=== PATIENT | female | born 1970 | race Caucasian/White ===

== ENCOUNTER → 2017-11-26 07:54 | Outpatient (CLI) | payer BC, SELFPAY | PROVIDERS: Family Provider Family Medicine; PCP Family Medicine; Visit Provider Obstetrics & Gynecology | DX: N93.9 Abnormal uterine and vaginal bleeding, unspecified (principal) | CPT/HCPCS: 76830; 76856; 93976 ==

== ENCOUNTER → 2018-03-09 13:51 | Outpatient (CLI) | payer BC, SELFPAY ==
[2018-03-09 11:11] VITALS: BMI 40.4
== END ==
PROVIDERS: Family Provider Family Medicine; PCP Family Medicine; Referring Provider Physician Assistant; Visit Provider Physician Assistant
DX: J02.9 Acute pharyngitis, unspecified (principal)
CPT/HCPCS: 87081

== ENCOUNTER 2018-03-12 08:02 | Day surgery (SDC) | payer BC, SELFPAY ==
[2018-03-09 11:11] VITALS: BMI 40.4
[2018-03-12] VITALS (13 sets, daily range): BP systolic 130–157; BP diastolic 78–95; PULSE 65–97; RESP 15–18; TEMP 36.6–37.3; O2SAT 90–100; BMI 39.4
--- NOTE | 2018-03-12 | HYST_PTH ---
PATIENT: SHANKAR GREGG [place] [facility] [place][id number] AGE/SX: 47/F ROOM: RE03/12/[address]: Dr. Kinsey Ramires MD : 1970 BED: DIS: 03/12/2018 SPEC #: [id number] RECD: 03/12/18 14:28 STATUS: FILIBERTO RANJITH #: [id number] BISI: 03/12/18 00:[address]: Kinsey Ramires DEPT: SURGICAL PATHOLOGY RECD BY: Sukumar Leger ENTERED: 03/12/18 14:28 SP TYPE: HYSTERECT OTHR DR: Dr. Alisson Ellison MD Tissues: Uterus, NOS Procedures: Surgery Specimen Level V HEADER OPERATION: Vaginal hysterectomy PRE-OP DIAGNOSIS: Abnormal uterine bleeding, history uterine ablation TISSUE SUBMITTED: Uterus MICROSCOPIC DIAGNOSIS Uterus, vaginal hysterectomy: Cervix - chronic inflammation. Endometrium - extensive fibrosis, consistent with history of endometrial ablation. - Focal area with proliferative endometrium. Myometrium - intramural leiomyoma (1 cm in greatest dimension). KINDRA:vladimir 03/13/18 MICROSCOPIC DESCRIPTION Slides are reviewed. GROSS DESCRIPTION Received in fixative is one container labeled with the patient's name and designated uterus. The specimen consists of a hysterectomy specimen consisting of uterus with cervix weighing 80 gm and measuring 9 x 5 x 4 cm. The specimen is previously, partially opened. The serosal surface is merchant, glistening. The ectocervical mucosa is unremarkable. The endocervical canal measures 2.5 cm in length and the endocervical mucosa is merchant, glistening and unremarkable. The endometrial cavity is almost completely obliterated and measures up to 4.5 cm in length. The endometrium appears to be completely fibrotic. The uterine wall reveals one merchant nodular mass measuring 1 cm in greatest dimension. Sections of this mass reveals merchant whorled cut surfaces without areas of hemorrhage, necrosis or cystic degeneration. The uninvolved uterine wall measures up to 2 cm in thickness. [employer] sections are submitted in seven cassettes as follows: 1 - anterior cervix, 2 - posterior cervix, 3 & 4 - anterior uterine wall, 5 & 6 - posterior uterine wall, 7 - nodular mass. / KINDRA:vladimir 03/12/18 TC:1 CPT: 03357
--- NOTE | 2018-03-12 05:56 | HP.PCM_ITS ---
- Problem List (1) Abnormal uterine bleeding Status: Acute Comment: plan TVH BS History and Physical Date of Admission: 03/12/18 Chief Complaint: hyst consult [employer] Required: No Is patient in pain?: No Allergies No Known Allergies Allergy (Verified 12/12/17 08:55) Medications NK [NK] 11/17/17 [History Confirmed 12/12/17] Is last menstrual period known: Yes Last Menstral Period: 11/28/17 Post menopausal: No Patient : No : [facility] History H/O tubal ligation (Acute) History of appendectomy (Acute) uterine ablation (Acute) Family History Sister Diabetes Mother Breast cancer Social History Smoking Status: Never smoker alcohol intake: current details: social substance use type: does not use caffeine: Yes what type of physical activity do you participate in: walking seatbelt use: always do you feel safe at home: Yes additional social history: [employer]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 she has had bleeding every two weeks and then had cramping also at times, and postcoital bleeding. she has [facility] 9 [facility] she is working at losing weight. Female Reproductive History Last Menstral Period: 11/28/17 Questions: Sexually active: Yes, PCB: Yes Pregancy History 2 Elective abortions Hx Para 2 Spontaneous abortions Hx # Term Pregnancies Ectopic pregnancies Hx # Pregnancies Multiple births # of living children Past Pregnancies Del. Date Name GA/Weeks Outcome Route Bth Weight Gen Labor Lgth Anesthesia Del Locatn Provider FOB Unknown 2000 Ever live - full term Unknown 2002 Miesha live - full term ROS Const Constitutional: Reports system reviewed and no additional complaints, except as docu GI GI: Reports system reviewed and no additional complaints, except as docu and as per HPI : Reports system reviewed and no additional complaints, except as docu and urinary urgency Exam Const General: cooperative, healthy appearing, comfortable, no acute distress, well developed Nutritional Appearance: average body habitus Orientation: alert HENMT Head: normal to inspection, normocephalic Ears: hearing grossly normal bilaterally, external ears normal Nose: external nose normal, nares normal Face and sinus: normal facial exam Neck Neck: normal visual inspection, trachea midline, no lymphadenopathy Thyroid: thyroid normal Resp Effort & Inspection: normal respiratory effort Musc Other: gross motor intact no deficits, full bilateral strength Skin General: no rashes or lesions noted Neuro Motor: muscle tone normal throughout Assessment & Plan Problems 1. Abnormal uterine bleeding N93.9 plan TVH BS Plan plan tvh bs for persistent bleeding and pain. discussed surgical risks including risks of anesthesia, infection, bleeding, injury to bowel, bladder or blood vessels, and patient wishes to proceed with surgery. UPDATE- I have seen the patient and performed any clinically relevant updates to the history and physical exam. Kinsey Ramires MD
[2018-03-12 08:33] LABS: Absolute Lymphocyte Count 2.45 X10^3/ul (0.83-4.51); Absolute Neutrophil Count 5.1 X10^3/uL (2.0-7.7); Basophil# 0.02 X10^3/uL; Basophil% 0.2 % (0-1); Eosinophils% 2.3 % (0-5); Hematocrit 44.6 % (37-47); Hemoglobin 15.2 g/dl (12.0-15.0); Lymphocyte # 2.45 X10^3/ul (4.0); Lymphocyte % 28.7 % (19-41); Mean Corp Hgb Conc 34.1 g/gl (32-36); Mean Corpuscular Hgb 29.7 pg (27.0-32.0); Mean Corpuscular Volume 87.3 fL (81-99); Mean Platelet Vol. 9.4 fl (6.2-12.0); Monocyte# 0.74 X10^3/uL; Monocyte% 8.7 % (0-10); Neutrophil # 5.12 X10^3/uL (2.7-7.7); Platelet Count 309 K/mm3 (150-450); RBC Distribution Width CV 13.1 % (11.6-14.6); RBC Distribution Width SD 41.9 fl (35.1-43.9); Red Blood Count 5.11 M/mm3 (4.2-5.4); White Blood Count 8.5 K/mm3 (4.4-11.0)
[2018-03-12 08:34] LABS: POSITIVE COUNT NO; POSITIVE DIFFERENTIAL NO; POSITIVE MORPHOLOGY NO
[2018-03-12] MEDS: Enoxaparin 40 MG/0.4 ML Syringe SC ×2 (08:46→09:44)
--- NOTE | 2018-03-12 08:48 | RAD_ITS ---
STUDY: X-RAY CHEST REASON FOR EXAM: Female, 47 years old. Pre-op evaluation for cough. TECHNIQUE: PA and lateral views of the chest. COMPARISON: Prior comparison studies are not available for review at this time. FINDINGS: The lungs are clear and expanded. There is no demonstrated pleural abnormality. Normal size heart. Normal mediastinum and evie. Normal visualized pulmonary arteries. There is atherosclerotic calcification of the aortic arch with tortuosity. Normal visualized thoracic spine. Normal visualized ribs, clavicles, and shoulders. There is no demonstrated abnormality of the visualized soft tissue structures of the upper abdomen. RAD/Chest PA and Lateral IMPRESSION: No radiographic evidence of acute cardiopulmonary disease. Electronically Signed: Tamanna Haskins MD at 9:38 EST , Service support ,
[2018-03-12 08:51] LABS: Bedside Glucose 111 mg/dL (70-110)
[2018-03-12] MEDS: Phenazopyridine 95 MG Tablet 190 MG PO (09:41)
[2018-03-12] MEDS: Celecoxib 200 MG Capsule 400 MG PO (09:42)
[2018-03-12] MEDS: Scopolamine 1mg/72hr Patch 1 PATCH TRANSDERM. (09:43)
[2018-03-12] MEDS: Acetaminophen 500 MG Tablet 1000 MG PO ×2 (09:44→16:48)
[2018-03-12] MEDS: Gabapentin 600 MG Tablet PO (09:44)
[2018-03-12] MEDS: Lidocaine/D5W 2,000 MG/250 ML IV.SOLN 37.98 MG IV (11:55)
--- NOTE | 2018-03-12 11:58 | PCM.OPRPT ---
Problem List (1) Abnormal uterine bleeding Status: Acute Comment: plan TV BS Report of Operation Date of Procedure: 03/12/18 Pre-Operative Diagnosis: aub Post-Operative Diagnosis: same Surgery/Procedure Performed:: tv Description of Surgical Findings:: posterior adhesion of cul de sac licensed psychologist manager: Isaura [place] Type of Anesthesia:: General Special Medications: cefoxitin Specimen's removed: uterus Drains: haywood Estimated Blood Loss (mL): 100 Fluids Replaced: crystalloid Description of Procedure: Patient was taken to the operating room and was placed under general anesthesia was prepped and draped in normal sterile fashion in the dorsal lithotomy position. Preoperative antibiotics and SCDs and Haywood catheter was placed inside the bladder. Weighted speculum was placed in the vagina and the anterior and posterior lip of the cervix was grasped with 2 Denise clamps and circumferentially injected with dilute vasopressin. A circumferential incision was made with a scalpel and the posterior cul-de-sac was entered into sharply and a longneck speculum was placed. The anterior cul-de-sac was also dissected down and entered into sharply and the uterosacral ligaments were clamped cut and suture ligated bilaterally followed by the cardinal ligaments which were Clamped cut and suture ligated bilaterally with 0 Monocryl. Posterior cul-de-sac adhesions were then encountered and therefore the uterus was delivered anteriorly and the utero-ovarian ligaments were clamped cut and suture ligated bilaterally with 0 Monocryl. the uterus serially descended and progressive bites were taken bilaterally up to the level of the utero-ovarian ligament bilaterally which was clamped transected and double ligated with 0 Monocryl suture and 0 Vicryl free tie. Bilateral fallopian tubes and ovaries were well visualized and noted be within normal limits for too far out of the immediate operative field that they were not removed. Posterior peritoneum was reapproximated with 2-0 Vicryl through bilateral uterosacral ligaments across the posterior cul-de-sac skimming along to provide apical support to the vagina. Some rawness was apparent over some posterior cul-de-sac adhesions and Haily was applied and excellent hemostasis was noted. The vagina was closed with [id number] 0 Vicryl pop offs including the posterior and anterior peritoneum in the reapproximation. Excellent hemostasis was noted. All instruments removed from the vagina clear urine was noted at the end of the procedure and patient was awoken and taken recovery in stable condition. Grafts/Implants Used: none - Complications none
--- NOTE | 2018-03-12 11:59 | DCINST_ITS ---
Discharge Diet: No Restrictions Discharge Activity: Return to Normal Activity, May Not Drive, May Shower May resume sexual activity in: 6-8 weeks Call your doctor if your incision/area has: Continuous Slow Oozing, Sudden Increased Bleeding, Increased Pain/ Swelling, Increased Redness, Foul Smelling Discharge Call your doctor if you observe: Fever of 101 or Higher, Inability to urinate, Inability to have a bowel movement, Using more than one pad per hour Allergies/Adverse Reactions: Allergies No Known Allergies Allergy (Verified 03/09/18 11:11) Medications to take at Discharge psyllium husk 0.52 gram capsule 0.52 g PO DAILY cap 03/09/18 Ibuprofen [Motrin] 600 mg PO Q6H PRN PRN #30 tablet 03/12/18 RX: Oxycodone HCl/Acetaminophen [Percocet 5-325] 1 - 2 tablet PO Q4H PRN PRN 7 Days #15 tablet 03/12/18 The following prescriptions were given: RX: Oxycodone HCl/Acetaminophen [Percocet 5-325] 1 - 2 tablet PO Q4H PRN PRN 7 Days #15 tablet PRN Reason: Pain Ibuprofen [Motrin] 600 mg PO Q6H PRN PRN #30 tablet PRN Reason: Pain Primary Care Physician: Alisson Ellison MD [Primary Care Provider] - Test Results: Test results from this visit will be discussed in further detail at your follow- up appointment, if applicable. Please Follow Up With: Kinsey Ramires MD - [phone]
[2018-03-12] MEDS: Vasopressin 20 UNITS/ML Vial (12:10)
[2018-03-12] MEDS: Lactated Ringers 1,000 ML 100 ML IV (16:48)
[2018-03-12] MEDS: Ketorolac 15 MG/ML Vial IV (16:48)
[2018-03-12] MEDS: 0.9% NaCl Peripheral Flush Adult/Peds IV (16:48)
[2018-03-12 17:43] LABS: Hematocrit 43.1 % (37-47); Hemoglobin 14.8 g/dl (12.0-15.0); Mean Corp Hgb Conc 34.3 g/gl (32-36); Mean Corpuscular Hgb 29.9 pg (27.0-32.0); Mean Corpuscular Volume 87.1 fL (81-99); Mean Platelet Vol. 9.7 fl (6.2-12.0); Platelet Count 326 K/mm3 (150-450); RBC Distribution Width CV 13.2 % (11.6-14.6); RBC Distribution Width SD 41.4 fl (35.1-43.9); Red Blood Count 4.95 M/mm3 (4.2-5.4); White Blood Count 15.5 K/mm3 (4.4-11.0)
[2018-03-12 17:44] LABS: Scan Indicated on CBC? Y/N NO
--- NOTE | 2018-03-12 18:32 | NURSING ---
Dr Montano notified of WBC and Hbg, states pt can go home after she voids.
[2018-03-12] MEDS: oxyCODONE 5 MG Tablet PO (20:48)
--- NOTE | 2018-03-12 21:15 | NURSING ---
Pt voided and ready for d/c. unable to locate prescriptions. noted prescription sent to [facility] retail pharmacy but unable to locate meds and pharmacy closed. contacted [facility] in [place] and no prescriptions received there. Contacted Dr Ramires. would not be able to get prescriptions to a pharmacy this evening before closing time. Dr Ramires happy for pt to be discharged if she wants to or stay if she feels she may need stronger pain medications. Pt happy to go home. Given oxy Ir prior to d/c for ride home. Pt has had previously with no problems. Pt happy to go to [facility] to get tylenol and ibuprofen. Dr Ramires advised she will send prescription to [facility] first thing in the morning. Pt instructed to wear her CPAP tonight (she stated she doesn't use all the time). Instructed to call Dr Ramires's office tomorrow to check on follow up appointment as no instructions on discharge paperwork. Explained BP slightly elevated and has been this admission, has been up and walking around and urinating. Advised symptoms to look out for when elevated and advised to follow up with PCP to recheck.
== END 2018-03-12 21:10 | disposition home or self-care (01) ==
LOC: SDC 08:04 → AC 08:05 → MS2 11:42
PROVIDERS: Family Provider Family Medicine; PCP Family Medicine; Referring Provider Obstetrics & Gynecology; Visit Provider Obstetrics & Gynecology
PROC: (CPT 58260; principal; 2018-03-12 10:10)
DX: D25.1 Intramural leiomyoma of uterus (principal); N72 Inflammatory disease of cervix uteri; N85.8 Other specified noninflammatory disorders of uterus; G47.30 Sleep apnea, unspecified
CPT/HCPCS: 58260; 36415; 71046; 82962; 85025; 85027; 86850; 86900; 88307; J7050; J7120; A4216; J2405

== ENCOUNTER → 2021-02-21 | Outpatient (CLI) | payer OTHER, SELFPAY ==
[2021-02-24 08:02] LABS: HSV Culture Without Typing Positive (.)
== END | disposition home or self-care (01) ==
LOC: LABSPEC 11:44
PROVIDERS: PCP Family Medicine; Referring Provider Nurse Practitioner Women's Health; Visit Provider Nurse Practitioner Women's Health
DX: L98.9 Disorder of the skin and subcutaneous tissue, unspecified (principal)
CPT/HCPCS: 87255